=== PATIENT | female | born 1995 | race African-American/Black ===

== ENCOUNTER 2021-02-22 16:20 | Emergency (ER) | payer OTHER, MEDICAID ==
[~2021-02-22] VITALS: Ht 165.1 cm; Wt 45.4 kg
[2021-02-22 16:32] VITALS: BP 116/58
--- NOTE | 2021-02-22 16:34 | NUR ---
SEIZURE PRECAUTIONS IN PLACE.
--- NOTE | 2021-02-22 16:35 | NUR ---
26 Y FEMALE BIBA FROM HOME DUE TO TONIC-CLONIC SEZIURE THAT OCCURED FOR ABOUT 2 MIN PER EMS. PER EMS PT WAS ASSISTED TO THE FLOOR, AND DENIES ANY TRAUMA FROM OCCURING. PT CURRENTLY POSTICAL AND [facility] 12. ONE EPISODE OF URINARY INCONTINENCE. PATIENT A&OX1 NAME/. PT PLACED ONTO FILING WRITER. BED LOCKED IN LOWEST POSITION, SIDE RAILS X 2 FOR PT SAFETY, CALL LIGHT IN REACH. PMH: SEZIURE, PSYCH NKA UNABLE TO OBTAIN MEDICATION LIST PER EMS.
--- NOTE | 2021-02-22 17:20 | NUR ---
PT IN HIGH-FOWLERS POSITION; SEIZURE PRECAUTIONS REMAIN IN PLACE. PATIENT A&OX3 AT THIS TIME, NAME/PLACE/SITUATION. STUNT DOUBLE IN PLACE SHOWING VSS; HR 75 SPO2 98% ON ROOM AIR. BED LOCKED IN LOWEST POSITION, SIDE RAILS X 2.
[2021-02-22 17:36] LABS: BASOPHILS % (AUTO) 0.7 % (0.0-2.0); EOSINOPHILS # (AUTO) 0.1 K/uL (0-0.4); EOSINOPHILS % (AUTO) 2.5 % (0.0-4.0); HEMATOCRIT 36.4 % (36-48); HEMOGLOBIN 12.3 g/dL (12.0-16.0); LYMPHOCYTES % (AUTO) 24.2 % (20.5-51.1); MEAN CORPUSCULAR HEMOGLOBIN 32 pg (27-31); MEAN CORPUSCULAR HGB CONC 34 g/dL (33-37); MEAN CORPUSCULAR VOLUME 93.6 fL (80-94); MONOCYTES # (AUTO) 0.3 K/uL (0.8-1.0); MONOCYTES % (AUTO) 8.3 % (1.7-9.3); NEUTROPHILS # (AUTO) 2.6 K/uL (1.8-7.7); NEUTROPHILS % (AUTO) 64.3 % (42.2-75.2); PLATELET COUNT (AUTO) 209 K/uL (140-450); RED BLOOD CELL COUNT(AUTO) 3.89 MIL/uL (4.20-5.40); RED CELL DISTRIBUTION WIDTH 12.5 % (11.6-13.7)
--- NOTE | 2021-02-22 17:38 | NUR ---
PT MOVED TO ER BED 6, CLOSER TO NURSING STATION FOR SEIZURE PRECAUTION/MONITORING.
[2021-02-22 18:06] LABS: ANION GAP 17.5 (8-16); ASPARTATE AMINOTRANSFERASE 13 U/L (15-37); CARBON DIOXIDE 18.6 mmol/L (21-32); CHLORIDE 105 mmol/L (98-107); GFR ARICAN-AMERICAN 86 mL/min (>90); GLUCOSE 94 mg/dL (74-106); MAGNESIUM 1.9 mg/dL (1.8-2.4); POTASSIUM 4.1 mmol/L (3.5-5.1); SODIUM SERUM 137 mmol/L (136-145); TOTAL BILIRUBIN 0.3 mg/dL (0.0-1.0); UREA NITROGEN, BLOOD 10 mg/dL (7-18)
--- NOTE | 2021-02-22 18:44 | NUR ---
pt [facility] 15. pt states med compliant, unknown last seizure. pt ambulates with steady gait to bathroom and to gurney safely. pending dispo. NAD
[2021-02-22] MEDS ORDERED: levETIRAcetam 500 MG TAB PO ONE (19:30)
--- NOTE | 2021-02-22 20:30 | NUR ---
PROVIDED PT WITH APPLE JUICE.
--- NOTE | 2021-02-22 21:50 | NUR ---
PROVIDED PT WITH PANTS and clean underwear
[2021-02-22 21:55] VITALS: BP 101/56
--- NOTE | 2021-02-22 21:55 | NUR ---
Patient discharged with v/s stable. Written and verbal after care instructions given and explained. Patient verbalized understanding. Ambulatory with steady gait. All questions addressed prior to discharge. Advised to follow up with PMD.
== END 2021-02-22 21:55 | disposition home or self-care (01) ==
LOC: MED 16:20
DX: R56.9 Unspecified convulsions (principal); R41.0 Disorientation, unspecified
CPT/HCPCS: 36415; 80053; 83735; 84702; 85025; 99285; G0482